=== PATIENT | female | born 1990 | race Caucasian/White ===

== ENCOUNTER → 2018-08-01 15:01 | Outpatient (CLI) | payer MEDICAID, SELFPAY ==
[2018-08-01 18:04] LABS: Alanine Aminotransferase 32 U/L (12-78); Albumin Level 3.7 gm/dL (3.4-5.0); Albumin/Globulin Ratio 1.2 (1.1-1.8); Alkaline Phosphatase 77 U/L (46-116); Anion Gap 17.3 mEq/L (5-15); Aspartate Amino Transferase 27 U/L (15-37); Bilirubin,Total 0.5 mg/dL (0.2-1.0); Blood Urea Nitrogen 11 mg/dL (7-18); Carbon Dioxide 24 mmol/L (21.0-32.0); Chloride 105 mmol/L (98-107); Creatinine,Serum 0.86 mg/dL (0.55-1.02); Estimated Glomerular Filt Rate 79 ml/min (>60); GFR (African American) 95 ML/MIN (>60); Glucose 81 mg/dL (74-106); Potassium 4.3 mmoL/L (3.5-5.1); Sodium 142 mmol/L (136-145); Thyroid Stimulating Hormone 1.07 uIU/ml (0.358-3.740); Total Protein,Serum 6.7 gm/dL (6.4-8.2)
== END ==
PROVIDERS: Visit Provider Family Medicine
DX: G11.1 Early-onset cerebellar ataxia (principal)
CPT/HCPCS: 36415; 80053; 84443

== ENCOUNTER → 2019-11-23 10:27 | Outpatient (CLI) | payer MEDICAID, SELFPAY ==
[2019-11-23 11:38] LABS: Basophils # 0.1 K/mm3 (0-0.2); Basophils % 0.9 % (0.1-2.0); Eosinophils # 0.3 K/mm3 (0.0-0.4); Eosinophils % 4.2 % (0.1-12.0); Hematocrit 44.9 % (37.0-47.0); Hemoglobin 14.5 g/dL (12.2-16.2); Lymphocytes % 29.7 % (10-50); Mean Corpuscular HGB Conc 32.3 g/dL (31.8-35.4); Mean Corpuscular Hemoglobin 28.8 pg (27.0-31.2); Mean Corpuscular Volume 89.1 fl (81-99); Mean Platelet Volume 8.4 fl (7.4-10.4); Monocytes # 0.6 K/mm3 (0.1-1.0); Monocytes % 8.1 % (1.7-9.3); Neutrophils # 3.9 K/mm3 (1.8-7.8); Platelet Count 315 K/mm3 (142-424); Red Blood Count 5.05 M/mm3 (4.20-5.40); White Blood Count 6.8 K/mm3 (4.8-10.8)
[2019-11-23 11:59] LABS: Strep Scrn Group A (Rapid) Negative (Negative)
[2019-11-24 14:03] LABS: Covid-19 Nasal PCR Sendout Lex NOT DETECTED
== END ==
PROVIDERS: PCP Family Medicine; Visit Provider Nurse Practitioner Family
DX: Z03.818 Encounter for observation for suspected exposure to other biological agents ruled out (principal)
CPT/HCPCS: 36415; 85025; 87430; U0004

== ENCOUNTER 2021-07-09 22:31 | Observation (INO) | payer MEDICAID, SELFPAY ==
[2021-07-09 22:33] VITALS: BP 141/118; PULSE 80; RESP 16; TEMP 37.2; O2SAT 99; BMI 25.0
[2021-07-09 23:02] VITALS: BP 108/59; PULSE 80; O2SAT 96
[2021-07-09 23:07] LABS: Coronavirus 19, PCR Not Detected (NotDetected); Influenza A, PCR Not Detected (NotDetected); Influenza B, PCR Not Detected (NotDetected)
--- NOTE | 2021-07-09 23:24 | HMH.EDURI ---
ED Disposition Clinical Impression: Bronchitis, Muscular dystrophy Disposition: Admitted as Observation Condition on Discharge: Good Instructions: DI for Acute Bronchitis Additional Instructions: use meds and see pcp for follow up Referrals: Angela Giles MD [Primary Care Provider] - - Critical Care Critical Care Time: No Attestation: On 07/09/21, the high probability of a clinically significant, sudden or life threatening deterioration of the following system(s) required my full and direct attention, intervention and personal management. The time I documented below is in addition to time spent performing reported procedures but includes the following listed in this critical care notation. Medical Decision Making - Medical Records Medical records reviewed: Yes: I reviewed the patient's medical records. - Phillip Inquiry Pt receiving controlled substance: No Vital Signs: 07/09/21 22:33 07/09/21 23:02 Temperature 99 F Temperature Source Oral Pulse Rate 80 Pulse Rate [Left] 80 Respiratory Rate 16 Blood Pressure 108/59 L Blood Pressure [Right Arm] 141/118 H Blood Pressure Mean [Right Arm] 125 02 Sat by Pulse Oximetry 99 96 Oxygen Delivery Method Room Air Room Air - Lab Data Lab results reviewed: Yes: I reviewed the patient's lab results. Lab Results 07/09/21 22:52: Group A Strep Rapid Negative 07/09/21 22:52: SARS-CoV-2 (PCR) Not detected, Influenza A Untype (PCR) Not detected, Influenza Type B (PCR) Not detected 07/10/21 00:08: WBC 12.1 H, RBC 5.66 H, Hgb 16.8 H, Hct 50.5 H, MCV 89.1, MCH 29.7, MCHC 33.3, RDW 14.5, Plt Count 267, MPV 8.6, Neut % (Auto) 69.3, Lymph % (Auto) 20.0, Worth % (Auto) 7.2, Eos % (Auto) 1.3, Baso % (Auto) 2.1 H, Neut # (Auto) 8.4 H, Lymph # (Auto) 2.4, Worth # (Auto) 0.9, Eos # (Auto) 0.2, Baso # (Auto) 0.3 H 07/10/21 00:08: Sodium 139, Potassium 4.3, Chloride 102, Carbon Dioxide 27, Anion Gap 14.3, BUN 6 L, Creatinine 0.70, Estimated Creat Clear 125, Estimated GFR 98, Est GFR ( Amer) 118, Glucose 94, Calcium 9.9, Total Bilirubin 1.1, AST 41 H, ALT 16, Alkaline Phosphatase 87, Total Protein 8.0, Albumin 4.5, Globulin 3.5 H, Albumin/Globulin Ratio 1.3 Result diagrams: 07/10/21 00:08 07/10/21 00:08 Orders (Tests/Meds): ED MEDICATIONS Generic Name Dose Route Start Last Admin Trade Name Freq PRN Reason Stop Dose Admin Benzonatate 100 mg 07/10/21 01:15 07/10/21 01:15 Benzonatate 100mg Capsule PO 08/09/21 01:14 100 mg ONCE ROBER Administration Lactated Ringer's 1,000 mls @ 999 mls/hr 07/09/21 23:45 07/10/21 01:13 Lactated Ringer's 1000 Ml Bag IV 07/10/21 00:45 999 mls/hr .Q1H1M ROBER Administration Ceftriaxone Sodium 1 gm/ 50 mls @ 100 mls/hr 07/10/21 00:30 07/10/21 00:27 Sodium Chloride IV 07/24/21 00:29 100 mls/hr Q24H ROBER Administration Discontinued Medications Generic Name Dose Route Start Last Admin Trade Name Freq PRN Reason Stop Dose Admin Albuterol/Ipratropium 3 ml 07/10/21 01:21 Ipratropium/Albuterol 3 Ml Neb IH 07/10/21 01:22 ONCE ONE Methylprednisolone Sodium Succinate 125 mg 07/10/21 00:22 07/10/21 00:27 Methylprednisolone Sod Succ 125mg Vial IV 07/10/21 00:23 125 mg ONCE ONE Administration ORDERS Category Date Time Status UA [Urinalysis and Microscopic] Stat Lab 07/09/21 23:53 Ordered Urine , HCG Qual. Stat Lab 07/09/21 23:54 Ordered Strep Screen Confirmation Stat Micro 07/09/21 22:52 Received - Radiology Data #1 Image(s): Chest Image Reviewed: Yes I have reviewed radiologist's interpretation Preliminary Findings: Normal/NAD - Physician Consults Physician Consulted: dangelo Reason -: Admission Medical Decision Narrative: has wheezing and congestion with sig spasm and will need admit at this time sec to sx and underlying disease URI/Sore Throat HPI - General Chief Complaint: Upper Respiratory Infection Stated Complaint: ear ache,sore thr
[2021-07-10] VITALS (13 sets, daily range): BP systolic 95–113; BP diastolic 53–84; PULSE 82–102; RESP 16–20; TEMP 36.4–37.2; O2SAT 93–99; BMI 25.0; BMI 20.5
--- NOTE | 2021-07-10 | XR_ITS ---
PROCEDURE INFORMATION: Exam: XR Chest Exam date and time: 07/10/2021 12:10 AM Age: 30 years old Clinical indication: Shortness of breath; Additional info: SOB TECHNIQUE: Imaging protocol: XR of the chest. Views: 1 view. COMPARISON: No relevant prior studies available. FINDINGS: Lungs: Lungs are clear. Pleural spaces: No pleural effusion. No pneumothorax. Heart/Mediastinum: Cardiomediastinal silouhette is within normal limits. Bones/joints: No acute osseous abnormality. Soft tissues: Unremarkable. IMPRESSION: No acute findings.
[2021-07-10 00:04] LABS: Strep Scrn Group A (Rapid) Negative (Negative)
[2021-07-10 00:23] LABS: Basophils # 0.3 K/mm3 (0-0.2); Basophils % 2.1 % (0.1-2.0); Eosinophils # 0.2 K/mm3 (0.0-0.4); Eosinophils % 1.3 % (0.1-12.0); Hematocrit 50.5 % (37.0-47.0); Hemoglobin 16.8 g/dL (12.2-16.2); Lymphocytes # 2.4 K/mm3 (0.7-4.5); Mean Corpuscular HGB Conc 33.3 g/dL (31.8-35.4); Mean Corpuscular Hemoglobin 29.7 pg (27.0-31.2); Mean Corpuscular Volume 89.1 fl (81-99); Mean Platelet Volume 8.6 fl (7.4-10.4); Monocytes # 0.9 K/mm3 (0.1-1.0); Monocytes % 7.2 % (1.7-9.3); Neutrophils # 8.4 K/mm3 (1.8-7.8); Neutrophils % 69.3 % (37.0-80.0); Platelet Count 267 K/mm3 (142-424); Red Blood Count 5.66 M/mm3 (4.20-5.40); Red Cell Distribution Width 14.5 % (11.5-17.5); White Blood Count 12.1 K/mm3 (4.8-10.8)
[2021-07-10 00:45] LABS: Chloride 102 mmol/L (98-107); Potassium 4.3 mmoL/L (3.5-5.1); Sodium 139 mmol/L (136-145)
[2021-07-10 00:47] LABS: Blood Urea Nitrogen 6 mg/dl (7-17); Creatinine Clearance Estimated 125 mL/min (50-200); Estimated Glomerular Filt Rate 98 ml/min (>60); GFR (African American) 118 ML/MIN (>60)
[2021-07-10 00:48] LABS: Alanine Aminotransferase 16 U/L (12-78); Albumin Level 4.5 g/dl (3.5-5.0); Albumin/Globulin Ratio 1.3 (1.1-1.8); Alkaline Phosphatase 87 U/L (38-126); Anion Gap 14.3 mEq/L (5-15); Aspartate Amino Transferase 41 U/L (14-36); Bilirubin,Total 1.1 mg/dl (0.2-1.3); Calcium 9.9 mg/dl (8.4-10.2); Carbon Dioxide 27 mmol/L (22.0-30.0); Globulin 3.5 g/dL (1.3-3.2); Glucose 94 mg/dl (74-100)
--- NOTE | 2021-07-10 01:21 | PC.NURSE ---
RT at bedside
--- NOTE | 2021-07-10 01:23 | PC.NURSE ---
paged Dr. Carlisle (on-call Dr. Giles)
--- NOTE | 2021-07-10 01:33 | PC.NURSE ---
Dr. Bridges s/w Dr Carlisle, agrees to admit for observation
--- NOTE | 2021-07-10 01:33 | PC.NURSE ---
House notified for bed assignment
[2021-07-10 01:34] LABS: Adenovirus,PCR Not Detected (NotDetected); Bordetella Pertussis Not Detected (NotDetected); Chlamydophila Pneumoniae, PCR Not Detected (NotDetected); Coronavirus 19, PCR Not Detected (NotDetected); Coronavirus 229E Not Detected (NotDetected); Coronavirus NL63 Not Detected (NotDetected); Coronavirus OC43 Not Detected (NotDetected); Coronovirus HKU1,PCR Not Detected (NotDetected); Human Metapneumovirus Not Detected (NotDetected); Influenza A, PCR Not Detected (NotDetected); Influenza AH1, 2009 Not Detected (NotDetected); Influenza AH1, PCR Not Detected (NotDetected); Influenza AH3,PCR Not Detected (NotDetected); Influenza B, PCR Not Detected (NotDetected); Mycoplasma Pneumoniae, PCR Not Detected (NotDetected); Parainfluenza 1, PCR Not Detected (NotDetected); Parainfluenza 2, PCR Not Detected (NotDetected); Parainfluenza 4, PCR Not Detected (NotDetected); Respiratory Syncytial Virus Not Detected (NotDetected); Rhinovirus/Enterovirus Not Detected (NotDetected)
--- NOTE | 2021-07-10 01:47 | PC.NURSE ---
report called to Qian ROLDAN
--- NOTE | 2021-07-10 02:08 | PC.NURSE ---
pt arrived to floor via wheelchair at this time.
[2021-07-10 03:07] LABS: Parainfluenza 3, PCR Detected (NotDetected)
--- NOTE | 2021-07-10 04:37 | PC.NURSE ---
Pt rested intermittently t/o shift since arriving to floor. Pt voiced no c/o of pain, N/V thus far in shift. Pt has her own wheel chair in room and mother at bedside. Pt is x2 assist, total dependent to transfer.
[2021-07-10 06:54] LABS: Anion Gap 12.8 mEq/L (5-15); Blood Urea Nitrogen 8 mg/dl (7-17); Calcium 8.6 mg/dl (8.4-10.2); Carbon Dioxide 23 mmol/L (22.0-30.0); Chloride 108 mmol/L (98-107); Creatinine Clearance Estimated 144 mL/min (50-200); Estimated Glomerular Filt Rate 144 ml/min (>60); GFR (African American) 174 ML/MIN (>60); Glucose 138 mg/dl (74-100); Magnesium 1.9 mg/dl (1.6-2.3); Potassium 3.8 mmoL/L (3.5-5.1); Sodium 140 mmol/L (136-145)
[2021-07-10 07:02] LABS: Basophils # 0.1 K/mm3 (0-0.2); Basophils % 0.5 % (0.1-2.0); Eosinophils % 0.3 % (0.1-12.0); Hematocrit 44.1 % (37.0-47.0); Lymphocytes # 0.8 K/mm3 (0.7-4.5); Lymphocytes % 8.4 % (10-50); Mean Corpuscular HGB Conc 33.1 g/dL (31.8-35.4); Mean Corpuscular Hemoglobin 29.6 pg (27.0-31.2); Mean Corpuscular Volume 89.3 fl (81-99); Mean Platelet Volume 9.2 fl (7.4-10.4); Monocytes # 0.3 K/mm3 (0.1-1.0); Monocytes % 2.6 % (1.7-9.3); Neutrophils # 8.4 K/mm3 (1.8-7.8); Neutrophils % 88.2 % (37.0-80.0); Platelet Count 243 K/mm3 (142-424); Red Blood Count 4.94 M/mm3 (4.20-5.40); Red Cell Distribution Width 14.7 % (11.5-17.5); White Blood Count 9.5 K/mm3 (4.8-10.8)
[2021-07-10 07:03] LABS: Hemoglobin 14.6 g/dL (12.2-16.2); MANUAL DIFFERENTIAL MANUAL DIFFERENTIAL (MANUAL DIFF)
[2021-07-10 07:20] LABS: Lymphocytes % 9 % (10-50); Monocytes % 2 % (2-9); Neutrophils % 89 % (42-76); Platelet Estimate Normal; RBC Morphology Normal; Total Cells Counted 100
--- NOTE | 2021-07-10 07:41 | HMH.PHAINT ---
Addendum entered and electronically signed by Richelle De La Vega PharmD 07/10/21 09:54: also verified home medication list using the list from [facility] office Original Note: verified home medication list using list from home pharmacy and pt interview
--- NOTE | 2021-07-10 07:42 | HMH.PHAVTE ---
[facility] Pharm[facility] VTE Monitoring - Patient Demographics Admission date: 07/10/21 Report Date: 07/10/21 Time: 07:42 Allergies/Adverse Reactions: Patient Allergies aspirin [ASPIRIN] Allergy (Unknown, Verified 11/12/20 14:17) Height: 1.65 m Weight: 55.928 kg Patient Problems: Current Active Problems Bronchitis (Acute) Muscular dystrophy (Chronic) - VTE Risk Labs: VTE Related Lab Results Hgb 14.6 g/dL (12.2-16.2) D 07/10/21 06:34 Hct 44.1 % (37.0-47.0) 07/10/21 06:34 Plt Count 243 K/mm3 (142-424) 07/10/21 06:34 BUN 8 mg/dl (7-17) D 07/10/21 06:34 Creatinine 0.50 mg/dl (0.52-1.04) L D 07/10/21 06:34 Estimated Creat Clear 144 mL/min (50-200) 07/10/21 06:34 Was VTE Risk Assessment Performed: Yes VTE Score: 3 VTE Risk Level: Low Risk Clinical Trial Participant: No - Prophylaxis VTE Prophylaxis Ordered?: Yes Types of VTE Prophylaxis: TEDS Knee High
--- NOTE | 2021-07-10 08:31 | HMH.HP ---
*Admission Date: 07/10/21 *Chief complaint: Cough, congestion, shortness of breath *History of present illness: Brittny is a 30-year-old female with a history of muscular dystrophy, scoliosis, Friedreich's ataxia, and cardiomyopathy. She was previously a patient of Dr. Donahue and saw him last a few years ago. Her mother states they have had difficulty getting to [facility] over the past few years, so she has been seeing Mary Torres in [place]. She began feeling poorly approximately 3 days ago. She had a fever, sore throat, earache, cough, congestion, shortness of breath, and headache. Her symptoms progressively got worse and she was brought to the emergency room for evaluation and treatment. Her chest x-ray showed nothing acute. Her white blood cell count was elevated, but her respiratory panel was positive for parainfluenza 3. Due to her medical problems, she was admitted for observation. [facility] History I have reviewed the patient's past medical history: Yes Medical History: Reports:: Asthma, Cardiomyopathy, Coronary Artery Disease Denies:: Cancer, Diabetes Mellitus Type 1, Diabetes Mellitus Type 2, MRSA *Have you ever received a pneumonia vaccine?: No *Have you received a flu vaccine this season?: Yes Other Medical History: Reports: Other (Muscular dystrophy, Friedreich's ataxia, scoliosis) Laterality Cases: Bilateral: Myringotomy (Ear Tubes), Other Other Surgeries: Yes: Appendectomy Amputation: No Fractures: No - *Social History Smoking Status: Never smoker Alcohol Intake: never Substance Use Type: marijuana *Occupational Status:: disabled Housing: house *Travel in the last 8 weeks: None Family Hx:: Cancer, Diabetes, Stroke Review of Systems - Constitutional Reports fever(s), Reports malaise, Reports weakness - Eyes Denies blurry vision, Denies double vision - ENT Reports nasal congestion, Reports sore throat - *Cardiovascular Reports chest pain, Reports shortness of breath - *Respiratory Reports chest congestion, Reports cough, Reports shortness of breath - *Gastrointestinal Reports abdominal pain, Reports loose stools, Reports nausea, Reports vomiting - *Genitourinary Denies difficulty urinating, Denies painful urination - *Musculoskeletal Reports muscle weakness, Reports body aches - *Neurologic Reports headache(s), Reports weakness, Denies seizure-like activity, Denies dizziness Meds Home Medications Medication Instructions Recorded Confirmed Type albuterol sulfate 90 mcg/actuation 2 puff INHALATION Q6H 06/28/17 07/10/21 History aerosol inhaler citalopram 20 mg tablet 10 mg PO DAILY 06/28/17 07/10/21 History diazepam 2 mg tablet 2 mg PO TID tab 06/28/17 07/10/21 History gabapentin 100 mg capsule 100 mg PO HS 06/28/17 11/12/20 History meclizine 12.5 mg tablet 12.5 mg PO ONCE 06/28/17 11/12/20 History montelukast 10 mg tablet 10 mg PO HS 06/28/17 07/10/21 History polyethylene glycol 3350 17 17 g PO DAILYP PRN 06/28/17 07/10/21 History gram/dose oral powder bupropion HCl 150 mg 24 hr tablet, 150 mg PO DAILY tab 11/12/20 07/10/21 History extended release metoprolol succinate 25 mg 25 mg PO tab 11/12/20 11/12/20 History tablet,extended release 24 hr omeprazole 20 mg capsule,delayed 20 mg PO DAILY cap 11/12/20 07/10/21 History release Allergies Allergy/AdvReac Type Severity Reaction Status Date / Time aspirin [ASPIRIN] Allergy Unknown Verified 11/12/20 14:17 Exam Vital signs and Labs for Last 24 Hours: Temp Pulse Resp BP Pulse Ox 98.2 F 83 18 100/60 L 97 07/10/21 04:00 07/10/21 06:37 07/10/21 04:00 07/10/21 04:00 07/10/21 04:00 Laboratory Results - last 24 hr 07/09/21 22:52: Group A Strep Rapid Negative 07/09/21 22:52: SARS-CoV-2 (PCR) Not detected, Influenza A Untype (PCR) Not detected, Influenza Type B (PCR) Not detected 07/10/21 00:00: Chlamy pneumoniae PCR Not detected, Adenovirus (PCR) Not detected, B. pertussis DNA (PCR) Not detected, Greta
--- NOTE | 2021-07-10 11:37 | HMH.PTEV ---
Physical Therapy Evaluation Rehab PT IP Evaluation Start: 07/10/21 10:32 Freq: ONCE Status: Active Protocol: Document 07/10/21 11:30 PWALLAN (Rec: 07/10/21 11:37 PWALLAN [id number]) Subjective/History History History this is the initial IP PT evaluation for Brittny Aviles. Pt is a 30 y/o female admitted to [facility] for respiratory compromise. Pt was admitted thru ED for acute bronchitis. 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 Subjective Subjective Pt reports she feels weaker than normal - pt reports she does exercises she learned at [facility] daily. Mother agreed with this Rehab PT IP Eval Objective Appearance Patient Behavior Appropriate,Cooperative Patient Orientation Place,Name,Birthday,Year Difficulty following instructions none Speech Pattern Appropriate,Coherent,Baseline Intonation,Baseline Speed, Baseline Volume,Slurred,Soft- Spoken,Monotone,Patient Baseline Ambulation Patient Able to Ambulate No Balance Ability to Arise Unable Sitting Balance Leans or slides in chair Standing Balance Unsteady Dynamic Sitting Balance Ability Poor Dynamic Standing Balance Ability Zero Transfers Bed Transfer Ability Maximum x 2 (75% assist) Sit to Stand Bed Transfer Ability Maximum x 2 (75% assist),Total /Dependent (100%) Rehab PT IP prob,goals,plan Problems Date of Evaluation: 07/10/21 PT IP Problems Bed Mobility,Transfers,Gait, Balance,Self care,Safety Rehab Potential Rehab Potential Poor Equipment Needs Assistive Devices Wheelchair Plan PT Intervention Plan Bed Mobility,Transfers,Gait, Balance,Self care,Safety, Therapeutic Exercise PT Plan Frequency BID Duration LOS Discharge Goals Bed Transfer Ability Maximum x 2 (75% assist) Sit to Stand Chair Transfer Ability Total/Dependent (100%) Discharge Plan PT Discharge Plan Pt will benefit from skilled therapy while in [facility] to regain as much function as possible. Once medically stable pt could return home, but wo
--- NOTE | 2021-07-10 11:59 | SW/DCPLANNER ---
Addendum entered by [facility] 07/11/21 10:44: Maria Dolores cesar/ Abbi stated that services will begin Wednesday for this patient. Addendum entered by [facility] 07/11/21 09:36: Patient information/order will be faxed to [facility] [place] today. I will follow up with [facility] once patient information is reviewed. Patient will discharge home later today. Addendum entered by [facility] 07/10/21 15:29: Tressa cesar/ [facility] stated that transfer board will be delivered to patient's room. Addendum entered by [facility] 07/10/21 13:33: Mary cesar/ [facility] stated they would be interested in this patient once medically stable for discharge. I will fax patient information/order to [facility] at time of discharge. Original Note: I spoke with this patient and her mother regarding plans once medically stable for discharge. Patient and mother stated that they are not interested in returning to [facility] and would prefer to return home. Patient stated that she has everything she needs at home for patient except a transfer board. will order patient a transfer board through [facility]. Patient currently receives Medicaid Waiver services through [employer]. I will speak with [facility] to see if they are accepting new referrals for home health PT/OT. Discharge date is unknown at this time.
--- NOTE | 2021-07-10 12:12 | CARE MANAGER ---
Patient is unable to transfer without assistance, and will require a transfer board.
--- NOTE | 2021-07-10 16:09 | PC.NURSE ---
PT IS AOX4, SHE HAS SEVERE WEAKNESS IN HER DISTAL EXTREMITIES AND CANNOT AMBULATE WITHOUT ASSISTANCE. SHE HAS NOT REQUIRED O2 SUPPORT. NO N/V/D THIS SHIFT. SHE HAS NOT C/O PAIN.
[2021-07-10 22:45] LABS: Microscopic, Urine URINE MICROSCOPIC (MICROSCOPIC)
[2021-07-10 22:48] LABS: Appearance,Urine CLEAR (Clear); Bilirubin,Urine Negative (Negative); Blood, Urine TRACE-I (Negative); Color,Urine YELLOW (Yellow); Glucose,Urine (UA) 3+ (Negative); Ketones,Urine Negative (Negative); Leukocyte Esterase,Urine Negative (Negative); Nitrate,Urine Negative (Negative); Protein,Urine Negative (Negative); Specific Gravity, Urine 1.015 (1.005-1.030); Urobilinogen,Urine 0.2 EU/dl (0.2)
[2021-07-10 22:52] LABS: Urine Pregnancy, HCG Qual. Negative (Negative)
[2021-07-10 22:59] LABS: Bacteria,Urine Trace /lpf; RBC,Urine Occasional #/hpf (0-3); WBC,Urine Occasional #/hpf (0-3)
--- NOTE | 2021-07-11 03:16 | PC.NURSE ---
Patient is A&O x4. Patient is weaker then normal per mom who has stayed with patient. Patient is total requiring bedpan at this time. Patient did have one episode of nausea with dry heaves, medicated patient per mar. Patient now resting. IV ABX administered per APR.
[2021-07-11 04:00] VITALS: BP 108/55; PULSE 76; RESP 20; TEMP 36.8; O2SAT 98
[2021-07-11 05:00] VITALS: BMI 21.0
[2021-07-11 06:24] VITALS: PULSE 85; PULSE 86
[2021-07-11 08:00] VITALS: BP 103/68; PULSE 92; RESP 20; TEMP 36.3; O2SAT 100
--- NOTE | 2021-07-11 08:25 | P.PN_ITS ---
Internal Medicine - PN: Subj *Date: 07/11/21 *Time: 08:25 Interval history: Patient is feeling a tiny bit better today. She states her chest is not as sore and her cough has improved. She has had no further vomiting or diarrhea. She still feels extremely weak. Exam Vital signs and Labs for Last 24 Hours: Temp Pulse Resp BP Pulse Ox 98.3 F 86 20 108/55 L 98 07/11/21 04:00 07/11/21 06:24 07/11/21 04:00 07/11/21 04:00 07/11/21 04:00 Laboratory Results - last 24 hr 07/10/21 22:30: Urine Color Yellow, Urine Appearance Clear, Urine pH 5.0, Ur Specific [place] 1.015, Urine Protein Negative, Urine Glucose (UA) 3+, Urine Ketones Negative, Urine Blood Trace-i, Urine Nitrate Negative, Urine Bilirubin Negative, Urine Urobilinogen 0.2, Ur Leukocyte Esterase Negative, Urine RBC Occasional, Urine WBC Occasional, Ur Squamous Epith Cells 10-20, Urine Bacteria Trace 07/10/21 22:30: Urine HCG, Qual Negative I & O for Last 24 hours: Intake & Output 07/08/21 07/09/21 07/10/21 07/11/21 11:59 11:59 11:59 11:59 Intake Total 360 / 360 Output Total 500 / 500 Balance -140 / -140 Weight 123 lb 4.8 oz 126 lb 8 oz - Constitutional no acute distress - *Routine Respiratory Exam Present: CTA bilaterally - *Routine Cardiovascular Exam Present: RRR - *Routine Abdominal Exam Present: soft, normoactive bowel sounds. Absent: tenderness - *Routine Extremities Exam Absent: cyanosis, clubbing, edema Comments: Contractures of the arms and legs - *Routine Skin Exam Present: warm. Absent: rash - *Routine Neurological Exam Present: alert, oriented X3 Assessment and Plan (1) Parainfluenza infection Status: Acute Category: Medical Code(s): B34.8 - Other viral infections of unspecified site (2) Bronchitis Status: Acute Category: Medical Code(s): J40 - Bronchitis, not specified as acute or chronic (3) Cardiomyopathy Status: Chronic Category: Medical Code(s): I42.9 - Cardiomyopathy, unspecified (4) Friedreichs ataxia Status: Chronic Category: Medical Code(s): G11.11 - Friedreich ataxia (5) Scoliosis Status: Chronic Category: Medical Code(s): M41.9 - Scoliosis, unspecified (6) Muscular dystrophy Status: Chronic Category: Medical Code(s): G71.0 - Muscular dystrophy - Assessment and plan all Dx Assessment and Plan for all problems:: Clinically patient is improving, will discuss further care with Dr. Giles.
[2021-07-11 09:25] LABS: Hemoglobin A1C 5.3 % (4.0-6.0)
--- NOTE | 2021-07-11 09:41 | PC.NURSE ---
Called Dr. Noonan office in [place]. Pt's mother states that the pt takes singular, claritin, gabapentin, and metoprolol. I am calling to see if this is something we need to be giving her or are we stopping these home medications. He said its fine to continue those 4 medications. I will put the orders in.
--- NOTE | 2021-07-11 09:47 | PC.NURSE ---
Spoke with Tessy and stated that pt is able to leave without the set up of home health. They will not see her here and will set it up as out pt.
--- NOTE | 2021-07-11 09:53 | PC.NURSE ---
Spoke with Mother she stated that she wants pts to have a bed bath first and then she will call ride to come get them.
--- NOTE | 2021-07-11 11:58 | PC.NURSE ---
Mother called and wanted to know if we were suppose to be sending in any abx for pt. Called Dr. Noonan office in [place] to clarify. Spoke with his RN Naty. He will call me back.
--- NOTE | 2021-07-12 22:50 | HMH.DCSUM ---
General - General Admission date:: 07/10/21 Discharge date: 07/11/21 HPI HPI: Brittny is a 30-year-old female with a history of muscular dystrophy, scoliosis, Friedreich's ataxia, and cardiomyopathy. She was previously a patient of Dr. Giles's and saw him last a few years ago. Her mother states they have had difficulty getting to [facility] over the past few years, so she has been seeing Mary Torres in [place]. She began feeling poorly approximately 3 days ago. She had a fever, sore throat, earache, cough, congestion, shortness of breath, and headache. Her symptoms progressively got worse and she was brought to the emergency room for evaluation and treatment. Her chest x-ray showed nothing acute. Her white blood cell count was elevated, but her respiratory panel was positive for parainfluenza 3. Due to her medical problems, she was admitted for observation. Hospital Course Hospital Course: The patient was admitted and started on Zithromax and Rocephin along with DuoNebs and IV fluids. She was also started on steroids. Chest physiotherapy and PT were ordered. Her respiratory panel came back positive for parainfluenza. By 07/11/2021, she was feeling better. Her chest was not as sore and her cough improved. She had no further vomiting or diarrhea but continued to feel extremely weak. Her lungs were clear and she was in no respiratory distress. Not having seen her for a while, it seemed to Dr. Giles that her Friedreich's ataxia had progressed. He did feel she was stable for discharge and she will follow-up with him in the office. Objective Vital signs: Temp Pulse Resp BP Pulse Ox 97.4 F L 92 H 20 103/68 L 100 07/11/21 08:00 07/11/21 08:00 07/11/21 08:00 07/11/21 08:00 07/11/21 08:00 Narrative: - Constitutional no acute distress - *Routine HEENT Exam Head: Present: normocephalic Eye: Present: EOMI, PERRL ENT: Present: mucous membranes dry - *Routine Neck Exam Present: supple. Absent: lymphadenopathy - *Routine Respiratory Exam Present: decreased breath sounds - *Routine Cardiovascular Exam Present: RRR - *Routine Abdominal Exam Present: soft, normoactive bowel sounds. Absent: tenderness - *Routine Rectal Exam Rectal:: deferred - *Routine Genitalia Exam Genitalia:: deferred - *Routine Extremities Exam Absent: cyanosis, clubbing, edema Comments: Contractures and muscle wasting of the arms and legs - *Routine Skin Exam Present: warm. Absent: rash - *Routine Neurological Exam Present: alert, oriented X3 DS: Diagnosis - Discharge Diagnosis (1) Parainfluenza infection Status: Acute (2) Bronchitis Status: Acute (3) Cardiomyopathy Status: Chronic (4) Friedreichs ataxia Status: Chronic (5) Scoliosis Status: Chronic Discharge Plan - Patient Discharge Instructions ACTIVITY: Continue current activity DIET: advance to your usual diet Patient Instructions: Friedreich Ataxia, Acute Bronchitis - Follow up Plan Follow up with: Angela Giles MD [Primary Care Provider] - 07/16/21 11:45 am Disposition: Home Health Service Condition at discharge:: Improved Home Medications: Home Medications Medication Instructions Recorded Confirmed Type albuterol sulfate 90 mcg/actuation 2 puff INHALATION Q6H 06/28/17 07/10/21 History aerosol inhaler citalopram 20 mg tablet 10 mg PO DAILY 06/28/17 07/10/21 History diazepam 2 mg tablet 2 mg PO TID tab 06/28/17 07/10/21 History gabapentin 100 mg capsule 100 mg PO DIRECTED 06/28/17 07/10/21 History meclizine 12.5 mg tablet 12.5 mg PO TIDP PRN 06/28/17 07/10/21 History montelukast 10 mg tablet 10 mg PO HS 06/28/17 07/10/21 History polyethylene glycol 3350 17 17 g PO DAILYP PRN 06/28/17 07/10/21 History gram/dose oral powder bupropion HCl 150 mg 24 hr tablet, 150 mg PO DAILY tab 11/12/20 07/10/21 History extended release metoprolol succinate 25 mg 25 mg PO BID tab 11/12/20
--- NOTE | 2021-07-14 14:59 | CARE MANAGER ---
Spoke with patient for post-discharge phone interview, she states she is still coughing but feels better.
== END 2021-07-11 11:26 | disposition home health service (06) ==
LOC: ER 07-10 01:31 → 2ND 07-10 01:43
PROVIDERS: Admitting Provider Family Medicine; Emergency Provider Emergency Medicine; PCP Family Medicine; Visit Provider Family Medicine
DX: J20.4 Acute bronchitis due to parainfluenza virus (principal); G11.11 Friedreich ataxia; I42.9 Cardiomyopathy, unspecified; I25.10 Atherosclerotic heart disease of native coronary artery without angina pectoris; M41.9 Scoliosis, unspecified; Z20.822 Contact with and (suspected) exposure to COVID-19
CPT/HCPCS: 96365; 71045; 80048; 80053; 81001; 81025; 83036; 83735; 85007; 85025; 87430; 87581; 87632; 87798; 94640; 96375; 97163; 97530; 99285; C9803; G0378; J0456; J0696; J2405; U0003; U0005

== ENCOUNTER → 2021-07-22 13:17 | Outpatient (CLI) | payer MEDICAID, SELFPAY ==
--- NOTE | 2021-07-22 | CA_ITS ---
APPROVED REPORT EXAM: Comprehensive 2D, Doppler, and color-flow Echocardiogram Membership Assistant: Addsi Salcido, RCS, RVS Ht: 5 ft 4 in Wt: 130lbs BSA: 1.63 BP: 103/68 mmHg Indications: CM, Major's Ataxia, CAD, Muscular dystrophy, Asthme 2D Dimensions IVSd 0.82 cm LVEF (Visual) 58.40 % PWd 1.03 cm LA Volume 37.40 mL LVDd 3.25 cm LA Volume Index 22.90 mL/m2 (M/F) 16-34 LVDs 2.28 cm Aortic Root 2.11 cm Left Atrium 2.87 cm LVOT 1.38 cm (M/F) 1.5-2.5 M-Mode Dimensions RVDd 2.01 cm (0.9-2.6) LA Diam 2.76 cm (1.9-4.0) LVDd 3.44 cm (3.5-5.7) Ao Diam 2.19 cm (2.0-3.7) LVDs 2.51 cm (3.5-5.7) IVSd 1.24 cm (0.6-1.1) PWd 0.97 cm (0.6-1.1) EF (Teich) 53.90% EPSs 0.27 cm FS 27.00% EDV (Teich) 48.80 mL TAPSE 1.54 (<1.7) ESV (Teich) 22.50 mL LV Diastology E Decel Time 137.00 (160-240 msec) E/A Ratio 6.36 MED E' 8.20 (< 7 cm/sec) MED A' 3.70 cm/s E'/MED E' Ratio 10.00 (>14) LAT E' 9.40 (<10 cm/sec) LAT A' 1.60 cm/s E/LAT E' Ratio 8.72 (>14) Aortic Valve LVOT Max 93.00 (70-110 cm/s) LVOT VTI 15.85 cm AoV Peak Lei. 88.00 (50-130 cm/s) AO Peak GR. 3.10 mmHg AO Mean GR. 1.60 (<5 mmHg) AO VTI 15.86 (18-25 cm) RICKY (VTI) 1.49 (2.5-4.5 cm2) Mitral Valve MV A Velocity 13.00 (40-130 cm/s) E/A Ratio 6.36 MV Decel. Time 137.00 (160-240 ms) MV PHT 40.00 ms Pulmonary Valve PV Peak Velocity 147.00 (50-150 cm/s) Tricuspid Valve TR P. Velocity 227.00 cm/s RAP Estimate 10.00 mmHg RVSP 30.70 mmHg Left Ventricle Left atrium is mildly enlarged, left ventricle is normal size, mild concentric left ventricular hypertrophy, estimated ejection fraction 55% with no regional wall motion abnormality, diastolic parameters are inconclusive. Right Ventricle Right atrium and right ventricle are normal size and contractility. Aortic Valve Aortic valve is grossly normal, there is no aortic stenosis or aortic insufficiency. Mitral Valve Mitral valve grossly normal, there is trace mitral regurgitation. Tricuspid Valve Tricuspid valve grossly normal, there is trace tricuspid regurgitation, calculated right ventricular systolic pressure is 30 mmHg. Pulmonic Valve Pulmonic valve is poorly visualized. Great Vessels Aortic root is normal size. Inferior vena cava is poorly visualized. Pericardium No significant pericardial effusion noted. Conclusion 1. Mildly enlarged left atrium, normal left ventricular size, mild concentric left ventricular hypertrophy, estimated ejection fraction 55% with no regional wall motion abnormality, diastolic parameters are inconclusive. 2. Trace mitral and tricuspid regurgitation, calculated right ventricular systolic pressure 30 mmHg. 3. No significant pericardial effusion noted. 4. Inferior vena cava is poorly visualized. Electronically signed by : Reno Schmidt MD 07/22/2021 19:40:23
== END ==
PROVIDERS: PCP Family Medicine; Visit Provider Family Medicine
DX: I42.9 Cardiomyopathy, unspecified (principal)
CPT/HCPCS: 93306

== ENCOUNTER 2024-10-11 09:29 | Outpatient (CLI) | payer MEDICAID, SELFPAY ==
--- OUTSIDE RECORDS SUMMARY | 2024-10-13 09:31 | XMS_ITS | Referral Summary ---
Author Organization [employer] ([place], [place], [place], [place]) Address [address] [place] [address] Care Team Providers Care Crew Boat Operator Name Role Phone Mary Thompson SENIOR DATABASE PROGRAMMER Primary Care Provider [phone] Mary Thompson SENIOR DATABASE PROGRAMMER Unavailable [phone] Social History Tobacco Use Types Packs/Day Years Used Date Smoking Tobacco: Never Assessed Comments Unknown Sex and Gender Information Value Date Recorded Sex Assigned at Not on file Legal Sex Female 4:00 PM CDT Gender Identity Not on file Sexual Orientation Not on file Plan of Treatment Not on file Insurance MEDICAID OF [place] Care Teams Crew Boat Operator Relationship Specialty Start Date End Date Mary Thompson APRN PCP - General Family Medicine 04/28/22 Mary Thompson APRN Referring Physician Family Medicine 04/28/22
--- OUTSIDE RECORDS SUMMARY | 2024-10-13 09:31 | XMS_ITS | Clinical Summary ---
Author Organization [employer] ([place], [place], [place], [place]) Address [address] [place] [address] Care Team Providers Care Call Center Specialist Name Role Phone Mary Thompson FRENCH DRAWER Primary Care Provider Mary Thompson FRENCH DRAWER Unavailable [phone] Social History Tobacco Use Types Packs/Day Years Used Date Smoking Tobacco: Never Assessed Comments Unknown Sex and Gender Information Value Date Recorded Sex Assigned at Not on file Legal Sex Female 4:00 PM CDT Gender Identity Not on file Sexual Orientation Not on file Plan of Treatment Not on file Insurance [place] Care Teams Call Center Specialist Relationship Specialty Start Date End Date Mary Thompson APRN PCP - General Family Medicine 04/28/22 Mary Thompson APRN Referring Physician Family Medicine 04/28/22
== END 2024-10-11 23:59 | disposition home or self-care (01) ==
LOC: LAB.DROPOF 10-13 09:30
PROVIDERS: PCP Nurse Practitioner Family; Visit Provider Nurse Practitioner
DX: B35.1 Tinea unguium (principal)
CPT/HCPCS: 87101; 87220